=== PATIENT | male | born 1945 | race Caucasian/White ===

== ENCOUNTER → 2019-11-02 | Outpatient (CLI) | payer OTHER, BC ==
[~2019-11-02] MED LIST: CYCLOBENZAPRINE5 MG PO
== END ==
LOC: SJCVCIMAG 14:17
DX: I65.23 Occlusion and stenosis of bilateral carotid arteries (principal); I44.0 Atrioventricular block, first degree; R00.1 Bradycardia, unspecified; I25.10 Atherosclerotic heart disease of native coronary artery without angina pectoris; I35.0 Nonrheumatic aortic (valve) stenosis; E78.00 Pure hypercholesterolemia, unspecified; I10 Essential (primary) hypertension

== ENCOUNTER → 2020-06-21 | Outpatient (CLI) | payer OTHER, BC | LOC: SJCVCIMAG 08:44 | PROVIDERS: ATTEND Internal Medicine Cardiovascular Disease | DX: I35.1 Nonrheumatic aortic (valve) insufficiency (principal); I25.10 Atherosclerotic heart disease of native coronary artery without angina pectoris; I10 Essential (primary) hypertension; I49.3 Ventricular premature depolarization; Z72.0 Tobacco use; Z79.899 Other long term (current) drug therapy; Z98.61 Coronary angioplasty status ==

== ENCOUNTER 2020-11-01 10:37 | Inpatient (IN) | payer OTHER, BC ==
[~2020-11-01] VITALS: Ht 175.3 cm; Wt 81.6 kg
[2020-11-01 10:55] VITALS: BP 95/53
[2020-11-01 12:01] LABS: ABSOLUTE NEUTROPHILS 7.6 thou/uL (1.4-8.2); BASOPHILS 0.8 % (0.0-2.0); EOSINOPHILS 0.5 % (0.0-3.0); HEMATOCRIT 38.9 % (42.0-52.0); HEMOGLOBIN 13.6 gm/dL (14.0-18.0); LYMPHOCYTES 8.8 % (24.0-44.0); MCH 34.5 pg (26.0-34.0); MCV 98.4 fL (80.0-100.0); MONOCYTES 11.7 % (1.0-8.0); PLATELET COUNT 263 thou/uL (150-400); POLYS 78.2 % (36.0-66.0); RBC 3.95 mil/uL (4.50-6.00); RDW 13.2 % (10.5-14.5); WBC 9.7 thou/uL (4.0-11.0)
[2020-11-01 12:04] LABS: ANION GAP 11 mmol/L (7-16); BUN 15 mg/dL (7-18); CALCIUM 8.3 mg/dL (8.5-10.1); CHLORIDE 96 mmol/L (98-107); CO2 24 mmol/L (21-32); CREATININE 0.9 mg/dL (0.7-1.3); GLUCOSE 122 mg/dL (74-106); POTASSIUM 3.9 mmol/L (3.5-5.1); SODIUM 131 mmol/L (136-145)
[2020-11-01 12:13] LABS: TROPONIN-I <0.06 ng/mL (<0.06)
[2020-11-01 12:38] LABS: ALBUMIN 2.9 g/dL (3.4-5.0); DIRECT BILIRUBIN 0.9 mg/dL (<0.1-0.2); TOTAL BILIRUBIN 2.8 mg/dL (0.2-1.0); TOTAL PROTEIN 6.3 g/dL (6.4-8.2)
--- NOTE | 2020-11-01 12:48 | EKG ---
[address] [place] [address] ELECTROCARDIOGRAM REPORT Name: KYARA MAXWELL Room #: REG HALE INFIRMARYSimeon#: [id number] Admission: 11/01/20 Attend Phys: Discharge: Date of : 41 Report #: [id number] [facility] ED Test Date: 2020-11-01 Test Time: 10:57:16 Pat Name: KYARA MAXWELL Department: Room: Gender: M Security Support Analyst: ERIN : 1945 Requested By: Christie Deal Order Number: [id number] MD: Jm Bolivar Measurements Intervals [place] Rate: 57 P: 43 CO: 199 QRS: 48 QRSD: 100 T: 48 QT: 463 QTc: 451 Interpretive Statements Sinus rhythm Atrial premature complex Probable left ventricular hypertrophy Baseline wander in lead(s) II,III,aVF,V6 Compared to ECG 07/10/2016 12:54:26 Atrial premature complex(es) now present Myocardial infarct finding no longer present Electronically Signed On 11-01-2020 12:48:42 [employer] by Jm Bolivar [email or web address] <ELECTRONICALLY SIGNED> By: Jm Bolivar MD, [facility] 11/01/20 1248 [id number] [id number] Jm Bolivar MD, [facility] /EPI
--- NOTE | 2020-11-01 14:33 | NUR ---
DIANELYS [phone]
[2020-11-01 15:25] LABS: INR 1.3; PROTIME 13.9 Seconds (9.3-11.4)
[2020-11-01 15:31] LABS: CHOLESTEROL 100 mg/dL (<200); HDL CHOLESTEROL 40 mg/dL (>40); LDL CHOLESTEROL 46 mg/dL (<100); TC:HDL 2.5 Ratio (Not establshd); TRIGLYCERIDE 72 mg/dL (<150); VLDL 14 mg/dL (<40)
[2020-11-01 18:00] LABS: URINE BILIRUBIN NEGATIVE (Negative); URINE BLOOD NEGATIVE (Negative); URINE CLARITY CLEAR; URINE COLOR YELLOW; URINE GLUCOSE-RANDOM* NEGATIVE (Negative); URINE KETONES TRACE (Negative); URINE NITRITE-REFLEX NEGATIVE (Negative); URINE PROTEIN (DIPSTICK) NEGATIVE (Negative)
[2020-11-01 18:02] LABS: URINE LEUKOCYTES-REFLEX 1+ (Negative)
[2020-11-01 18:20] VITALS: BP 134/49
[2020-11-01 19:05] LABS: SQUAMOUS None Seen /LPF (0-3)
[2020-11-01 19:06] LABS: BACTERIA-REFLEX None Seen /HPF (None Seen); CASTS None Seen /LPF (None Seen); CRYSTALS None Seen /LPF (None Seen); MUCUS None Seen strn/LPF (None Seen); URINE RBC None Seen /HPF (0-2); URINE WBC-REFLEX 0-5 Rare /HPF (0-5)
[2020-11-01 19:09] VITALS: BP 124/46
[2020-11-01 19:41] LABS: % SATURATION 25 % (20-39); IRON 57 ug/dL (65-175); TIBC 227 ug/dL (250-450)
[2020-11-01 20:21] LABS: BF NUCLEATED CELLS 335 /mm3; BF RBC 677 /mm3; CLARITY CLEAR; COLOR YELLOW; SOURCE ABDOMINAL; TOTAL VOLUME 60 mL
[2020-11-01 20:28] LABS: BF MACROPHAGE 0 %; BF NEUTROPHILS 13 %
--- NOTE | 2020-11-02 02:55 | NUR ---
PT ARRIVED TO UNIT APPROX 1930. PT ORIENTED TO ROOM AND UNIT. ADMISSION PROCESS AND CONSENTS DISCUSSED WITH PT AND PT DAUGHTER, CARLITOS VIA PHONE. PT AOX4 WITH INTERMITTENT FORGETFULNESS, NOTABLY HARD OF HEARING WITHOUT HEARING AIDES. PT DENIES PAIN. PT NOTED TO HAVE SOB WITH EXERTION, NO DESATURATIONS NOTED, REMAINS ON ROOM AIR. PT TOLERATING PO INTAKE OF FLUIDS AND HEART HEALTHY DIET WITHOUT ISSUE. PT WITHOUT NAUSEA OR EMESIS. SOLIS CATHETER REMAINS IN PLACE, PATENT, FUNCTIONING PROPERLY. PT RESTING IN BED THROUGHOUT SHIFT, FREQUENT REPOSITIONING ENCOURAGED, PT NOTED TO SHIFT INDEPENDENTLY WHILE IN BED. PT ASSESSED WITH PITTING +4 EDEMA TO BLE, SENSATION INTACT AND CAPILLARY REFILL LESS THAN 3SEC IN ALL EXTREMITIES. PT ENCOURAGED TO NOTIFY STAFF FOR ALL NEEDS, CALL LIGHT WITHIN REACH, BED ALARM ON, BED LOCKED IN LOWEST POSITION, FREQUENT MONITORING WILL CONTINUE.
[2020-11-02 06:46] LABS: ALBUMIN 2.2 g/dL (3.4-5.0); CALCIUM 7.5 mg/dL (8.5-10.1); CREATININE 0.8 mg/dL (0.7-1.3); MAGNESIUM 1.7 mg/dL (1.8-2.4); TOTAL BILIRUBIN 1.9 mg/dL (0.2-1.0)
[2020-11-02 07:00] VITALS: BP 110/56
[2020-11-02 07:09] LABS: ALPHA FETOPROTEIN-TUMOR* 2.2 ng/mL (0.0-8.3)
[2020-11-02] MEDS ORDERED: SPIRONOLACTONE100 M1 PO (09:17)
[2020-11-02] MEDS ORDERED: PROPRANOLOL 1010 MG PO (09:17)
[2020-11-02] MEDS ORDERED: VITAMIN B-1100 M2 PO (09:18)
[2020-11-02] MEDS ORDERED: LASIX 40 MG TAB40 M1 PO (09:18)
[2020-11-02] MEDS ORDERED: CHLORDIAZEPOXID25 M1 PO (09:18)
[2020-11-02 10:25] LABS: SOURCE CHEST
--- NOTE | 2020-11-02 11:04 | NUR ---
ASSESSMENT: CM REVIEWED CHART AND SPOKE WITH PATIENT. PT IS ALERT AND ORIENTED X4. PT WAS ADMITTED DUE TO [facility] AND HAD PARACENTESIS YESTERDAY WITH 6L REMOVED. PT REPORTS LIVING IN A HOUSE ALONE. PT REPORTS IT IS A SPLIT LEVEL HOME WITH ABOUT 5-6 STEPS WITH HANDRAILS ON EACH LEVEL. PT REPORTS HE AMBULATERS INDEPENDENTLY BUT DOES HAVE A CANE AT HOME FROM A PAST SURGERY. PT HAS A LONG HX OF ALCOHOL USE AND CM OFFERED RESOURCES FOR PATIENT BUT HE DECLINED THE NEED FOR IT. PT REPORTS HE HAS NOT BEEN TO AA AND IS NOT INTERSTED. PT REPORTX NO HX OF HH OR SNF. PLANS ARE FOR PATIENT TO DISCHARGE HOME TODAY. PT DOES NOT ANTICIPATE HAVING ANY NEEDS.
[2020-11-02 11:07] LABS: HAV IgM AB (ANTI-HAV IgM) Negative (Negative); HEPATITIS B SURFACE AG Negative (Negative); HEPATITIS C VIRUS AB <0.1 (0.0-0.9)
[2020-11-02 12:07] LABS: BODY FLUID ALBUMIN 1.1 g/dL (Not Estab.); BODY FLUID AMYLASE 22 U/L (()); BODY FLUID GLUCOSE 110 mg/dL (()); BODY FLUID LDH 82 IU/L (()); BODY FLUID PROTEIN 1.8 g/dL (())
[2020-11-02 13:30] VITALS: BP 110/56
--- NOTE | 2020-11-03 07:02 | NUR ---
PATIENT D/C PRIOR TO OT EVAL BEING INITIATED
[2020-11-04 15:08] LABS: MITOCHONDRIAL ANTIBODY <20.0 Units (0.0-20.0); SMOOTH MUSCLE ANTIBODY 8 Units (0-19)
== END 2020-11-02 16:00 | disposition home or self-care (01) | DRG 432 ==
LOC: ER 10:37 → EROBS 15:03 → 4S 15:03
PROVIDERS: Emergency Medicine; Nurse Practitioner; ADMIT Hospitalist; ATTEND Hospitalist
PROC: 0W9G30Z Drainage of Peritoneal Cavity with Drainage Device, Percutaneous Approach (ICD-10-PCS; principal; 2020-11-01)
DX: K70.31 Alcoholic cirrhosis of liver with ascites (principal); E43 Unspecified severe protein-calorie malnutrition; K76.6 Portal hypertension; J91.8 Pleural effusion in other conditions classified elsewhere; K70.11 Alcoholic hepatitis with ascites; I10 Essential (primary) hypertension; E78.00 Pure hypercholesterolemia, unspecified; M19.90 Unspecified osteoarthritis, unspecified site; J45.909 Unspecified asthma, uncomplicated; F17.210 Nicotine dependence, cigarettes, uncomplicated; F10.20 Alcohol dependence, uncomplicated; Z20.822 Contact with and (suspected) exposure to COVID-19; E78.5 Hyperlipidemia, unspecified; E61.1 Iron deficiency; M62.84 Sarcopenia; Z95.5 Presence of coronary angioplasty implant and graft; Z71.6 Tobacco abuse counseling; Z68.26 Body mass index [BMI] 26.0-26.9, adult
CPT/HCPCS: 10195

== ENCOUNTER → 2020-11-16 | Outpatient (CLI) | payer OTHER, BC ==
[~2020-11-16] MED LIST changes: +CHLORDIAZEPOXID25 M1 PO; +LASIX 40 MG TAB40 M1 PO; +PROPRANOLOL 1010 MG PO; +SPIRONOLACTONE100 M1 PO; +VITAMIN B-1100 M2 PO
== END ==
LOC: SJCVC 10:19
PROVIDERS: ATTEND Internal Medicine Cardiovascular Disease
DX: R94.31 Abnormal electrocardiogram [ECG] [EKG] (principal); I25.10 Atherosclerotic heart disease of native coronary artery without angina pectoris; E78.00 Pure hypercholesterolemia, unspecified; I10 Essential (primary) hypertension; I35.0 Nonrheumatic aortic (valve) stenosis; I65.23 Occlusion and stenosis of bilateral carotid arteries; K76.9 Liver disease, unspecified; K72.90 Hepatic failure, unspecified without coma; K76.6 Portal hypertension; R18.8 Other ascites; F17.210 Nicotine dependence, cigarettes, uncomplicated; Z79.899 Other long term (current) drug therapy

== ENCOUNTER → 2021-03-23 | Outpatient (CLI) | payer OTHER, BC | LOC: SJCVCIMAG 08:08 | PROVIDERS: ATTEND Internal Medicine Cardiovascular Disease | DX: I35.8 Other nonrheumatic aortic valve disorders (principal); I25.10 Atherosclerotic heart disease of native coronary artery without angina pectoris; I10 Essential (primary) hypertension; E78.00 Pure hypercholesterolemia, unspecified; K72.90 Hepatic failure, unspecified without coma; R18.8 Other ascites; K76.6 Portal hypertension; K74.60 Unspecified cirrhosis of liver; Z79.899 Other long term (current) drug therapy; Z72.89 Other problems related to lifestyle ==